=== PATIENT | female | born 1985 | race Caucasian/White ===

== ENCOUNTER 2017-06-17 02:45 | Inpatient (IN) | payer SELFPAY ==
[~2017-06-17] VITALS: Ht 152.4 cm; Wt 54.4 kg
[2017-06-17] MEDS ORDERED: DEXT 5%/LR + PITOCIN 20UNITS/L 1,000 ML IV SCH ×2 (03:53→04:02)
[2017-06-17] MEDS ORDERED: LACTATED RINGERS 1,000 ML IV SCH (03:53)
[2017-06-17] MEDS ORDERED: METHYLERGONOVINE MALEATE 0.2 MG/ML IM PRN ×2 (04:00→04:15)
[2017-06-17] MEDS ORDERED: NALOXONE HCL 0.4 MG/ML 1ML VIAL IM PRN (04:00)
[2017-06-17] MEDS ORDERED: LANOLIN OINT 0.25 GM TUBE TOP PRN (04:15)
[2017-06-17] MEDS ORDERED: GLYCERIN/WITCH HAZEL LEAF MEDICATED PAD TOP PRN (04:15)
[2017-06-17] MEDS ORDERED: RHO(D) IMMUNE GLOBULIN 300 MCG/SYR IM PRN (04:15)
[2017-06-17] MEDS ORDERED: BENZOCAINE/LANOLIN/ALOE VERA SPRAY TOP PRN (04:15)
[2017-06-17] MEDS ORDERED: ACETAMINOPHEN WITH CODEINE 300/30MG TABLET PO PRN (04:15)
[2017-06-17 04:25] LABS: CLARITY URINE CLEAR (CLEAR); COLOR URINE DARK YELLOW (YELLOW); KETONES URINE 1+ (NEGATIVE); LEUKOCYTE ESTERASE URINE 1+ (NEGATIVE); NITRITE URINE POSITIVE (NEGATIVE); OCCULT BLOOD URINE 1+ (NEGATIVE); PROTEIN URINE 2+ (NEGATIVE); SPECIFIC GRAVITY URINE 1.027 (1.005-1.030)
[2017-06-17 04:35] LABS: *BARBITURATES SCREEN URINE NEGATIVE (NEGATIVE); *BENZODIAZEPINES SCREEN URINE NEGATIVE (NEGATIVE); *COCAINE SCREEN URINE NEGATIVE (NEGATIVE)
[2017-06-17 04:36] LABS: CANNABINOID URINE SCREEN NEGATIVE (NEGATIVE); METHADONE URINE SCREEN NEGATIVE (NEGATIVE); OPIATES URINE SCREEN NEGATIVE (NEGATIVE); PHENCYCLIDINE URINE SCREEN NEGATIVE (NEGATIVE)
[2017-06-17] MEDS ORDERED: PREN-176 PO (04:36)
[2017-06-17 04:40] LABS: BASOPHILS % 0.9 % (0.0-2.0); EOSINOPHILS % 0.1 % (0.0-5.0); HEMATOCRIT. 32.1 % (36.0-48.0); HEMOGLOBIN. 10.5 g/dL (12.0-16.0); LYMPHOCYTES % 12.4 % (20.0-50.0); MEAN CORPUSCULAR HEMOGLOBIN 22.9 pg (28.0-32.0); MEAN CORPUSCULAR VOLUME 70.4 fL (81.0-99.0); MEAN PLATELET VOLUME 8.9 fl (7.4-10.4); MONOCYTES % 4.7 % (2.0-8.0); NEUTROPHILS % 81.9 % (40.0-76.0); PLATELET 471 x1000/uL (130-400); RED BLOOD CELL COUNT 4.57 mill/uL (4.2-5.4); RED CELL DISTRIBUTION WIDTH 18.3 % (11.6-14.6)
[2017-06-17 04:43] LABS: CHLORIDE 105 mEq/L (98-107)
[2017-06-17 04:52] LABS: *AMPHETAMINES SCREEN URINE PRESUMTIVE POSITIVE (NEGATIVE)
[2017-06-17 04:54] LABS: INR 0.9; PARTIAL THROMBOPLASTIN TIME 23.6 sec (23.4-31.0); PROTHROMBIN TIME 9.6 sec (9.4-11.6)
[2017-06-17 06:25] VITALS: BP 136/88
[2017-06-17 07:59] VITALS: BP 130/84
[2017-06-17] MEDS: SIMETHICONE 80MG TABLET CHEW PO SCH ×4 (09:15→20:55)
[2017-06-17] MEDS: PRENATAL VIT/FE FUMARATE/FA TABLET PO SCH (09:15)
[2017-06-17] MEDS: IBUPROFEN 400MG TABLET PO PRN (09:16)
[2017-06-17 10:26] LABS: HEPATITIS B SURFACE ANTIGEN NEGATIVE; RUBELLA IGG 128.3 IU/mL (4.99-10)
[2017-06-17 16:00] VITALS: BP 114/65
[2017-06-17 20:00] VITALS: BP 123/70
[2017-06-17] MEDS: DOCUSATE SODIUM 100MG CAPSULE PO SCH (20:55)
[2017-06-18 05:30] VITALS: BP 118/69
[2017-06-18 07:16] LABS: BASOPHILS % 0.5 % (0.0-2.0); HEMATOCRIT. 27.4 % (36.0-48.0); HEMOGLOBIN. 8.6 g/dL (12.0-16.0); LYMPHOCYTES % 23.1 % (20.0-50.0); MEAN CORPUSCULAR HEMOGLOBIN 22.3 pg (28.0-32.0); MEAN CORPUSCULAR VOLUME 71.4 fL (81.0-99.0); MEAN PLATELET VOLUME 8.2 fl (7.4-10.4); MONOCYTES % 5.9 % (2.0-8.0); NEUTROPHILS % 69.5 % (40.0-76.0); PLATELET 347 x1000/uL (130-400); RED BLOOD CELL COUNT 3.83 mill/uL (4.2-5.4)
[2017-06-18 08:22] VITALS: BP 103/53
[2017-06-18] MEDS: SIMETHICONE 80MG TABLET CHEW PO SCH ×2 (09:12→19:01)
[2017-06-18] MEDS: PRENATAL VIT/FE FUMARATE/FA TABLET PO SCH (09:12)
[2017-06-18] MEDS: IBUPROFEN 400MG TABLET PO PRN ×2 (09:13→19:01)
[2017-06-18] MEDS ORDERED: MEDROXYPROGESTERONE ACETATE 150MG/ML VIAL IM SCH (10:00)
[2017-06-18 16:44] VITALS: BP 124/61
[2017-06-18] MEDS: ACETAMINOPHEN WITH CODEINE 300/30MG TABLET PO PRN (19:00)
[2017-06-18] MEDS: DOCUSATE SODIUM 100MG CAPSULE PO SCH (21:22)
[2017-06-18 21:46] VITALS: BP 112/65
[2017-06-19 06:00] VITALS: BP 114/60
[2017-06-19] MEDS ORDERED: MEDROXYPROGESTERONE ACETATE 150MG/ML VIAL IM NR (10:00)
[2017-06-19] MEDS: SIMETHICONE 80MG TABLET CHEW PO SCH (10:04)
[2017-06-19] MEDS: PRENATAL VIT/FE FUMARATE/FA TABLET PO SCH (10:05)
[2017-06-19] MEDS: ACETAMINOPHEN WITH CODEINE 300/30MG TABLET PO PRN (10:05)
[2017-06-19] MEDS ORDERED: TETANUS, DIPHTHERIA, PERTUSSIS VAC/PF 0.5ML (>7YR OLD) IM ONE (12:00)
[2017-06-20 14:21] LABS: AMPHETAMINE CONF URINE Positive (.)
== END 2017-06-19 13:20 | disposition home or self-care (01) | DRG 561 ==
LOC: OBSVTOIN 02:45 → L&D 02:45 → 7EST PP/OB 06:25
PROVIDERS: ADMIT Obstetrics & Gynecology; ATTEND Obstetrics & Gynecology
DX: O90.81 Anemia of the puerperium (principal); O99.325 Drug use complicating the puerperium; F15.10 Other stimulant abuse, uncomplicated; D64.9 Anemia, unspecified
CPT/HCPCS: 36415; 80053; 80305; 80307; 81003; 85025; 85610; 85730; 86592; 86703; 86762; 86850; 86900; 87077; 87086; 87186; 87340; 90715; J1050; J2590; J7120